=== PATIENT | female | born 1990 | race Caucasian/White ===

== ENCOUNTER → 2016-08-03 | Outpatient (CLI) | payer OTHER ==
[2016-08-03 15:24] LABS: Basophils % (A) 0 %; CH 28.1; CHCM 31.8; Eosinophils # (A) 0.1 k/uL (0-0.7); Eosinophils % (A) 2 %; HCT 40.9 % (34.0-46.0); HDW 2.58; HGB 12.8 gm/dL (11.4-16.0); Luc # (Auto) 0.18; Luc % (Auto) 2; Lymphocytes # (A) 2.5 k/uL (1.0-4.8); Lymphocytes % (A) 29 %; MCH 27.8 pg (25.0-35.0); MCHC 31.2 g/dL (31.0-37.0); Mean Platelet Volume 6.8; Monocytes # (A) 0.4 k/uL (0-1.0); Monocytes % (A) 5 %; Neutrophils # (A) 5.5 k/uL (1.3-7.7); Neutrophils % (A) 63 %; RBC 4.59 m/uL (3.80-5.40); WBC 8.8 k/uL (3.8-10.6)
== END | disposition home or self-care (01) ==
LOC: LABPAT 14:47
PROVIDERS: ATTEND Obstetrics & Gynecology
DX: Z01.818 Encounter for other preprocedural examination (principal)
CPT/HCPCS: 85025

== ENCOUNTER 2016-08-14 06:03 | Day surgery (SDC) | payer OTHER ==
[2016-08-09 15:11] VITALS: BMI 32.7
--- NOTE | 2016-08-13 14:31 | P.HPOB ---
History of Present Illness H&P Date: 08/13/16 Chief Complaint: Family planning This is a 26-year-old female 4 para 2 who presents for laparoscopic bilateral tubal ligation for family planning. She is currently using control pills for control but would like permanent sterilization. Obstetrical history: . History of 2 vaginal deliveries at term. History of 2 miscarriages. Gynecologic history: no history of sexual transmitted diseases. Social history: She is single. She works part-time at a grocery store. Review of Systems Constitutional: Denies chills, Denies fever Ears, nose, mouth and throat: Reports headache, Denies sore throat Cardiovascular: Denies chest pain, Denies shortness of breath Respiratory: Denies cough Gastrointestinal: Denies abdominal pain, Denies diarrhea, Denies nausea, Denies vomiting Genitourinary: Reports stress incontinence Menstruation: Reports period normal Musculoskeletal: Denies myalgias Neurological: Denies numbness, Denies weakness Psychiatric: Reports anxiety, Reports depression, Reports irritability Endocrine: Reports weight change, Denies fatigue Past Medical History Past Medical History: No Reported History Additional Past Medical History / Comment(s): GETTING THYROID CHECKED., FREQUENT HEADACHES. History of Any Multi-Drug Resistant Organisms: None Reported Additional Past Surgical History / Comment(s): D&C 2 Past Anesthesia/Blood Transfusion Reactions: No Reported Reaction Past Psychological History: Anxiety, Depression Smoking Status: Never smoker Past Alcohol Use History: Occasional Past Drug Use History: None Reported - Past Family History Mother Family Medical History: No Reported History Medications and Allergies Home Medications Medication Instructions Recorded Confirmed Type Levonorgestrel-Ethin Estradiol 1 tab PO HS 05/03/16 08/09/16 History [Lutera-28 Tablet] Acetaminophen Tab [Tylenol Tab] 1,000 mg PO Q6HR PRN 08/09/16 08/09/16 History Ibuprofen [Motrin] 200 - 400 mg PO Q6HR PRN 08/09/16 08/09/16 History Allergies Allergy/AdvReac Type Severity Reaction Status Date / Time prochlorperazine edisylate AdvReac Rapid Verified 08/09/16 15:01 [From Compazine] Heart Rate, FELT JITTERY prochlorperazine maleate AdvReac Rapid Verified 08/09/16 15:01 [From Compazine] Heart Rate, FELT JITTERY Exam Osteopathic Statement: *. No significant issues noted on an osteopathic structural exam other than those noted in the History and Physical/Consult. HEENT: Within normal limits Heart: Regular rate and rhythm Lungs: Clear to auscultation bilaterally Abdomen: Soft, nontender Pelvic exam: Uterus is small, anteverted, with no adnexal masses or tenderness noted. Extremities: Negative Homans Assessment and Plan (1) Family planning Status: Acute Plan: Proceed with laparoscopic bilateral tubal ligation via fulguration. I have discussed the risks, benefits, and alternative therapies for the above- mentioned procedure and for both sedation/anesthesia as well as necessary blood products administration, if indicated, as they pertain to this patient. The patient has indicated her understanding and acceptance of the risks and procedures discussed.
[~2016-08-14 06:03] MED LIST: DEXAMETHASONE SOD PHOSPHATE 10 MG/ML 1 ML VIAL IV ONE; LIDOCAINE 1% 20 ML VIAL (10MG/ML) FOR IV START INTRADERMA PRN; ONDANSETRON 4 MG/2 ML VIAL IVP ONE; Pre Op ABX Message 1 EACH MISC MISCELLANE ONE; SCOPOLAMINE 1.5MG/72HR PATCH TRANSDERM ONE
[2016-08-14 06:31] VITALS: RESP 16
[2016-08-14] MEDS: LACTATED RINGERS 1,000 ML IV SCH ×2 (06:47→07:28)
[2016-08-14] MEDS ORDERED: BUPIVACAINE (PF) 0.25% 30 ML VIAL SQ ONE ×3 (07:22→07:49)
[2016-08-14] MEDS ORDERED: MIDAZOLAM 2 MG/2 ML VIAL ONE (07:30)
[2016-08-14] MEDS ORDERED: HYDROmorphone (PF) 1 MG/ML ONE (07:30)
[2016-08-14] MEDS ORDERED: ROCURONIUM BROMIDE 10 MG/ML 10 ML VIAL IV ONE (07:30)
[2016-08-14] MEDS ORDERED: LIDOCAINE 1% INJ 10MG/ML (20 ML MDV) ONE (07:30)
[2016-08-14] MEDS ORDERED: GLYCOPYRROLATE 0.2 MG/ML 2 ML VIAL ONE (07:30)
[2016-08-14] MEDS ORDERED: NEOSTIGMINE 1 MG/ML 10 ML VIAL ONE (07:30)
[2016-08-14] MEDS ORDERED: SUCCINYLCHOLINE CHLORIDE 100 MG/5 ML SYR IV ONE (07:30)
[2016-08-14] MEDS ORDERED: PROPOFOL 10 MG/ML 20 ML VIAL IV ONE (07:30)
[2016-08-14] MEDS ORDERED: fentaNYL (PF) 50 MCG/ML 2 ML AMP ONE (07:30)
[2016-08-14] MEDS ORDERED: KETOROLAC 30 MG/ML 1 ML VIAL ONE (07:30)
[2016-08-14] MEDS ORDERED: ESMOLOL 100 MG/10 ML VIAL ONE (07:30)
--- NOTE | 2016-08-14 08:10 | P.OP ---
Date of Procedure: 08/14/16 Preoperative Diagnosis: Family-planning Postoperative Diagnosis: Same Procedure(s) Performed: Laparoscopic bilateral tubal ligation via fulguration Anesthesia: CHALO Surgeon: Brianna Woodard Estimated Blood Loss (ml): 5 Pathology: none sent Condition: stable Disposition: same day Indications for Procedure: This is a 26-year-old female 4 para 2 who presents for laparoscopic bilateral tubal ligation for family planning. She is currently using control pills for control but would like permanent sterilization. Operative Findings: Uterus is retroverted and sounded to 8 cm. Normal uterus tubes and ovaries are noted. Description of Procedure: The patient is taken to the operating room where she is placed in the dorsal lithotomy position. She is prepped and draped in the normal sterile fashion. Examination is performed under anesthesia. Uterus is found to be in a retroverted position. No adnexal masses were palpated. Next a bivalve speculum was placed in the patient's vagina. A single-tooth tenaculum was used to grasp the anterior lip of the cervix. The uterus was sounded to 8 cm. The kroner uterine manipulator was then inserted through the cervix and the balloon was inflated. The single-tooth tenaculum is removed speculum was removed gloves were changed and attention was turned to the abdomen. The infraumbilical fold was grasped in transverse fashion with 2 Allis clamps. A small transverse incision was made with a scalpel. A hemostat was used to carry the incision down to the underlying layer of fascia. A towel clip was placed above the umbilicus for retraction. A 11 mm disposable bladeless trocar was then inserted into the peritoneal cavity under direct visualization. Once inside, pneumoperitoneum was achieved with CO2 gas. The insert was removed and the camera was placed. Intraperitoneal placement was confirmed. No bleeding was noted. Next the patient was placed in Trendelenburg position. A small stab incision was made suprapubically and a 5 mm disposable bladeless trocar was inserted into the peritoneal cavity under direct visualization. Once inside pelvic contents were inspected. Next a bipolar Kleppinger instrument was placed through the inferior trocar and the midportion of each tube was brought away from other structures and completely fulgurated on approximate 2-3 cm segment of each tube. Excellent hemostasis was noted. A picture was taken. Pneumoperitoneum was released after the inferior trocar was removed under direct visualization. The upper trocar was then removed. The fascial incision was closed with 0 Vicryl suture in interrupted [id number] stitch. The skin incisions were then closed with 4-0 Vicryl suture in a subcuticular fashion. Incisions were then injected with quarter percent Marcaine. Approximately 7 mL were used. Next the kroner uterine manipulator was removed. Minimal bleeding was noted. All sponge and needle counts are correct. The patient is then taken to recovery room in stable condition.
[2016-08-14] MEDS ORDERED: LACTATED RINGERS 1,000 ML IV ONE (08:13)
[2016-08-14] MEDS: HYDROmorphone 1 MG/ML 1 ML SYRINGE IVP PRN ×2 (08:25→08:40)
[2016-08-14 08:28] VITALS: TEMP 97
[2016-08-14] MEDS ORDERED: Acetaminophen-Codeine 300-30mg TAB PO ONE (10:15)
[2016-08-14 10:47] VITALS: BP 99/69; PULSE 64
== END 2016-08-14 11:10 | disposition home or self-care (01) ==
LOC: OR 06:03
PROVIDERS: ATTEND Obstetrics & Gynecology
DX: Z30.2 Encounter for sterilization (principal); N85.4 Malposition of uterus; Z79.3 Long term (current) use of hormonal contraceptives; Z88.8 Allergy status to other drugs, medicaments and biological substances
CPT/HCPCS: 58670; 81025; J2250; J2710; J2001; J3010; J1885; J1170; J0330; J2704

== ENCOUNTER → 2024-08-15 | Outpatient (CLI) | payer BC ==
--- NOTE | 2024-08-16 06:35 | MR ---
EXAMINATION TYPE: MR brain wo con DATE OF EXAM: 08/15/2024 COMPARISON: NONE HISTORY: Migraines, Happening more often, Light sensitive when really bad, TECHNIQUE: Multiplanar, multisequence imaging of the brain and brainstem is performed without IV cont rast. FINDINGS: Diffusion weighted images demonstrate no evidence of a recent infarct or other diffusion abnormality. There is no extraaxial fluid collection or significant white matter signal abnormality. The ventricu lar system and cisternal spaces are normal in size and appearance. The brain volume is age appropria te. No suspicious intraparenchymal blood products on the T2 star weighted images. Midline structures demonstrate normal morphology. The craniocervical junction appears within normal limits. Normal vascular flow voids are present. [id number] mucosal thickening with patchy secre tions inferiorly in the right maxillary sinus. There is 1.4 cm loculated mucous retention cyst or ericka yp in the anterior inferior left maxillary sinus. Globes are intact bilaterally. IMPRESSION: Maxillary sinus disease otherwise unremarkable study. [facility], , 08/16/2024 6:33 AM
== END | disposition home or self-care (01) ==
LOC: RADMRIMAIN 19:26
PROVIDERS: ATTEND Family Medicine
DX: G43.109 Migraine with aura, not intractable, without status migrainosus (principal); J32.0 Chronic maxillary sinusitis
CPT/HCPCS: 70551